=== PATIENT | male | born 1985 | race Caucasian/White ===

== ENCOUNTER 2016-12-06 12:35 | Emergency (ER) | payer OTHER ==
[~2016-12-06] VITALS: Ht 175.2 cm; Wt 81.6 kg
[~2016-12-06 12:35] MED LIST: ANAPROX DS550 MG PO; ATIVAN1 MG PO; BACTRIM DS 8001 TA1 PO; CITALOPRAM HYDR20 MG PO; CLARITIN10 MG PO; DAYPRO600 M1 PO; FLEXERIL5 MG PO; FLOMAX0.4 MG PO; GOOD NEIGHBOR L10 MG PO; HYDROCODONE BIT1 T11 PO; LOTRISONE 0.05%1 CRE TP; MEDROL DOSEPAK4 MG PO; MOTRIN800 MG PO; NAPROSYN500 MG PO; NORCO 5-325 TA1 EACH PO; PHENERGAN25 M3 PO; PREDNICOT10 MG PO; ROBAXIN750 MG PO; TRAMADOL50 MG PO
[2016-12-06] MEDS ORDERED: TOBRADEX 0.1%-0.5 ML OPH (14:04)
== END 2016-12-06 14:12 | disposition home or self-care (01) ==
LOC: ED 12:35
DX: T15.92XA Foreign body on external eye, part unspecified, left eye, initial encounter (principal); X58.XXXA Exposure to other specified factors, initial encounter; Y93.89 Activity, other specified; Y92.810 Car as the place of occurrence of the external cause; Y99.9 Unspecified external cause status

== ENCOUNTER → 2017-07-06 | Outpatient (CLI) | payer OTHER ==
[~2017-07-06] MED LIST changes: +TOBRADEX 0.1%-0.5 ML OPH
== END | disposition home or self-care (01) ==
LOC: RAD 15:11
DX: J06.9 Acute upper respiratory infection, unspecified (principal); R09.89 Other specified symptoms and signs involving the circulatory and respiratory systems; R05 Cough

== ENCOUNTER 2017-09-03 08:59 | Emergency (ER) | payer OTHER ==
[~2017-09-03] VITALS: Ht 175.2 cm; Wt 83.9 kg
[2017-09-03] MEDS ORDERED: Motrin,Rufen800 MG PO (09:53)
[2017-09-03] MEDS ORDERED: CYCLOBENZAPRINE5 M3 PO (09:53)
== END 2017-09-03 10:02 | disposition home or self-care (01) ==
LOC: ED 08:59
DX: M54.5 Low back pain (principal); G89.29 Other chronic pain; Z79.899 Other long term (current) drug therapy

== ENCOUNTER 2020-02-03 10:33 | Emergency (ER) | payer BC ==
[~2020-02-03] VITALS: Wt 86.2 kg
[~2020-02-03 10:33] MED LIST changes: +CYCLOBENZAPRINE5 M3 PO; +Motrin,Rufen800 MG PO
[2020-02-03 10:52] LABS: BASO % 0.4 % (0.0-1.0); EOS # 0.1 10*3/uL (0.0-0.4); EOS % 1.2 % (1.0-4.0); LYMPH # 1.7 10*3/uL (1.3-4.4); LYMPH % 18.2 % (27.0-41.0); MEAN CELL VOLUME 91.3 fl (80.0-94.0); MEAN CORPUSCULAR HGB CONC 32.9 g/dl (33.0-37.0); MEAN PLATELET VOLUME 9.5 fl (9.6-12.3); MONO # 0.6 10*3/uL (0.1-1.0); MONO % 6.9 % (3.0-9.0); NEUT # 6.6 10*3/uL (2.3-7.9); NEUT % 73.2 % (47.0-73.0); PLATELET COUNT AUTOMATED 226 10*3/uL (130-400); RED BLOOD COUNT 4.93 10*6/uL (4.50-5.90); RED CELL DISTRI WIDTH 12.4 % (0-14.5); WHITE BLOOD COUNT 9.1 10*3/uL (4.8-10.8)
[2020-02-03 11:00] LABS: BILIRUBIN NEGATIVE; BLOOD 3+ (NEGATIVE); CLARITY CLOUDY (CLEAR); COLOR YELLOW (YELLOW); GLUCOSE NEGATIVE; KETONE NEGATIVE; LEUKO ESTERASE TRACE (NEGATIVE); NITRITE NEGATIVE (NEGATIVE)
[2020-02-03 11:05] LABS: BUN 18 mg/dl (7-24); CHLORIDE 109 mmol/L (98-107); CREATININE 1.18 mg/dL (0.70-1.30); POTASSIUM 4.3 mmol/L (3.5-5.1); SODIUM 141 mmol/L (136-145)
[2020-02-03 11:07] LABS: BACTERIA 2+; RBC TNTC rbc/hpf (0-2)
[2020-02-03] MEDS ORDERED: REGLAN10 M1 PO (12:35)
[2020-02-03] MEDS ORDERED: FLOMAX0.4 MG PO (12:35)
[2020-02-03] MEDS ORDERED: NAPROXEN250 MG PO (12:35)
[2020-02-03] MEDS ORDERED: NORCO 5-325 TA1 EACH PO (12:35)
== END 2020-02-03 13:00 | disposition home or self-care (01) ==
LOC: ED 10:33
PROVIDERS: Emergency Medicine
DX: N20.0 Calculus of kidney (principal)

== ENCOUNTER → 2020-12-18 | Outpatient (CLI) | payer BC ==
[~2020-12-18] MED LIST changes: +NAPROXEN250 MG PO; +REGLAN10 M1 PO
[2020-12-18 14:04] LABS: BASO % 0.7 % (0.0-1.0); EOS # 0.2 10*3/uL (0.0-0.4); EOS % 3.4 % (1.0-4.0); HEMATOCRIT 44.2 % (42.0-52.0); LYMPH # 2.2 10*3/uL (1.3-4.4); LYMPH % 36.4 % (27.0-41.0); MEAN CELL VOLUME 91.1 fl (80.0-94.0); MEAN CORPUSCULAR HGB 31.1 pg (27.0-31.0); MEAN CORPUSCULAR HGB CONC 34.2 g/dl (33.0-37.0); MEAN PLATELET VOLUME 9.5 fl (9.6-12.3); MONO # 0.5 10*3/uL (0.1-1.0); MONO % 8.2 % (3.0-9.0); NEUT # 3.1 10*3/uL (2.3-7.9); NEUT % 51.1 % (47.0-73.0); PLATELET COUNT AUTOMATED 233 10*3/uL (130-400); RED BLOOD COUNT 4.85 10*6/uL (4.50-5.90); RED CELL DISTRI WIDTH 12.5 % (0-14.5); RETICULOCYTE % 0.88 % (0.50-2.50); WHITE BLOOD COUNT 6.1 10*3/uL (4.8-10.8)
[2020-12-18 14:16] LABS: BILIRUBIN Negative (Negative); BLOOD Negative (Negative); CLARITY Clear (Clear); COLOR Yellow (Yellow); GLUCOSE Negative (Negative); KETONE Trace (Negative); LEUKO ESTERASE Negative (Negative); NITRITE Negative (Negative); PH 5.5 (4.5-8.0); SPECIFIC GRAVITY 1.025 (1.001-1.030)
[2020-12-18 14:35] LABS: ALBUMIN 4.2 gm/dl (3.1-4.5); ALKALINE PHOSPHATASE 49 U/L (45-117); BUN 16 mg/dl (7-24); CHLORIDE 108 mmol/L (98-107); CHOLESTEROL 146 mg/dL (<200); CREATININE 1.32 mg/dL (0.70-1.30); GAMMA GLUTAMYL TRANSPEPTIDASE 12 U/L (15-85); IRON 61 ug/dL (65-175); LDL CHOLESTEROL 78 mg/dL (9-159); POTASSIUM 3.9 mmol/L (3.5-5.1); SGOT/AST 12 IU/L (3-35); SGPT/ALT 17 U/L (12-78); SODIUM 142 mmol/L (136-145); TOTAL IRON BINDING CAPACITY 246 ug/dl (250-450); TOTAL PROTEIN 7.4 gm/dL (6.4-8.2); TRIGLYCERIDES 105 mg/dl (<150); URIC ACID 4.4 mg/dL (3.5-7.2)
[2020-12-18 14:41] LABS: THYROID STIM HORMONE (HS) 0.801 uIU/ml (0.358-4.75)
[2020-12-18 14:54] LABS: EPITHELIAL CELLS 0-2; WBC 0-2 wbc/hpf (0-5)
[2020-12-18 14:55] LABS: BACTERIA TRACE; RBC 0-2 rbc/hpf (0-2)
[2020-12-18 15:21] LABS: VITAMIN D, 25-HYDROXY 24.8 ng/mL (30-100)
[2020-12-19 08:08] LABS: RHEUMATOID ARTHRITIS FACTOR 14.4 IU/mL (0.0-13.9)
[2020-12-19 13:07] LABS: ANTI-DSDNA ANTIBODIES <1 IU/mL (0-9)
== END | disposition home or self-care (01) ==
LOC: LAB 13:40
PROVIDERS: ATTEND Family Medicine
DX: M51.36 Other intervertebral disc degeneration, lumbar region (principal); M48.061 Spinal stenosis, lumbar region without neurogenic claudication; E78.5 Hyperlipidemia, unspecified; R79.89 Other specified abnormal findings of blood chemistry; R53.83 Other fatigue; E55.9 Vitamin D deficiency, unspecified; M19.90 Unspecified osteoarthritis, unspecified site; R74.8 Abnormal levels of other serum enzymes

== ENCOUNTER → 2021-01-03 | Outpatient (CLI) | payer BC | END | disposition home or self-care (01) | LOC: MRI 07:48 | PROVIDERS: ATTEND Family Medicine | DX: M48.061 Spinal stenosis, lumbar region without neurogenic claudication (principal); M51.37 Other intervertebral disc degeneration, lumbosacral region; M51.26 Other intervertebral disc displacement, lumbar region; S05.40XA Penetrating wound of orbit with or without foreign body, unspecified eye, initial encounter; X58.XXXA Exposure to other specified factors, initial encounter; Y93.89 Activity, other specified; Y92.89 Other specified places as the place of occurrence of the external cause; Y99.8 Other external cause status ==

== ENCOUNTER → 2021-11-19 | Outpatient (CLI) | payer BC | END | disposition home or self-care (01) | LOC: LAB 13:32 | PROVIDERS: ATTEND Internal Medicine Critical Care Medicine | DX: R53.83 Other fatigue (principal) ==

== ENCOUNTER → 2023-05-19 | Outpatient (CLI) | payer OTHER | END | disposition home or self-care (01) | LOC: US 00:16 | PROVIDERS: ATTEND Internal Medicine | DX: N13.30 Unspecified hydronephrosis (principal); N20.0 Calculus of kidney; Z96.0 Presence of urogenital implants ==

== ENCOUNTER 2024-04-03 09:36 | Emergency (ER) | payer OTHER ==
[~2024-04-03] VITALS: Ht 175.2 cm; Wt 77.1 kg
[2024-04-03] MEDS ORDERED: MODAFINIL200 M1 PO (09:49)
[2024-04-03] MEDS ORDERED: ROPINIROLE HYDRO1 MG PO (09:50)
[2024-04-03] MEDS ORDERED: XYWAV 0.50.5 GM/1 M PO (09:50)
[2024-04-03] MEDS ORDERED: VIIBRYD20 M1 PO (09:50)
[2024-04-03] MEDS ORDERED: Ketorolac Tromethamine 30 MG/ML VIAL IV ONE (10:00)
[2024-04-03] MEDS ORDERED: Ondansetron Hydrochloride 4 MG/2 ML VIAL IV ONE (10:00)
[2024-04-03 10:10] LABS: BASO # 0.1 10*3/uL (0.0-0.1); BASO % 0.6 % (0.0-1.0); EOS # 0.1 10*3/uL (0.0-0.4); HEMATOCRIT 42.4 % (42.0-52.0); LYMPH # 1.1 10*3/uL (1.3-4.4); LYMPH % 13.6 % (27.0-41.0); MEAN CELL VOLUME 91.6 fl (80.0-94.0); MEAN CORPUSCULAR HGB 31.7 pg (27.0-31.0); MEAN CORPUSCULAR HGB CONC 34.7 g/dl (33.0-37.0); MEAN PLATELET VOLUME 9.1 fl (9.6-12.3); MONO # 0.5 10*3/uL (0.1-1.0); NEUT # 6.4 10*3/uL (2.3-7.9); NEUT % 78.7 % (47.0-73.0); PLATELET COUNT AUTOMATED 209 10*3/uL (130-400); RED BLOOD COUNT 4.63 10*6/uL (4.50-5.90); RED CELL DISTRI WIDTH 12.3 % (0-14.5); WHITE BLOOD COUNT 8.2 10*3/uL (4.8-10.8)
[2024-04-03 10:34] LABS: BILIRUBIN Negative (Negative); BLOOD 3+ (Negative); CLARITY Turbid (Clear); COLOR Yellow (Yellow); GLUCOSE Negative (Negative); KETONE 1+ (Negative); LEUKO ESTERASE Negative (Negative); NITRITE Negative (Negative); SPECIFIC GRAVITY 1.015 (1.001-1.030)
[2024-04-03 10:37] LABS: BUN 15 mg/dl (9-23); CHLORIDE 105 mmol/L (98-107); POTASSIUM 3.9 mmol/L (3.4-5.1)
[2024-04-03 10:46] LABS: PH >= 9.0 (4.5-8.0)
[2024-04-03 11:20] LABS: BACTERIA 2+; EPITHELIAL CELLS 0-2; RBC 51-100 rbc/hpf (0-2)
[2024-04-03] MEDS ORDERED: PERCOCET 5-3251 EACH PO (11:48)
[2024-04-03] MEDS ORDERED: CIPRO500 MG PO (11:51)
== END 2024-04-03 12:22 | disposition home or self-care (01) ==
LOC: ED 09:36
PROVIDERS: Internal Medicine
DX: N20.0 Calculus of kidney (principal); R11.2 Nausea with vomiting, unspecified; F32.A Depression, unspecified; Z98.890 Other specified postprocedural states

== ENCOUNTER → 2024-04-17 | Outpatient (CLI) | payer OTHER ==
[~2024-04-17] MED LIST changes: +CIPRO500 MG PO; +MODAFINIL200 M1 PO; +PERCOCET 5-3251 EACH PO; +ROPINIROLE HYDRO1 MG PO; +VIIBRYD20 M1 PO; +XYWAV 0.50.5 GM/1 M PO
== END | disposition home or self-care (01) ==
LOC: RAD 08:21
PROVIDERS: ATTEND Urology
DX: N20.0 Calculus of kidney (principal)